=== PATIENT | male | born 1950 | race Caucasian/White ===

== ENCOUNTER → 2017-12-18 | Outpatient (CLI) | payer BC | END | disposition home or self-care (01) | LOC: PCVCIMAG 14:31 | DX: I25.10 Atherosclerotic heart disease of native coronary artery without angina pectoris (principal); I25.5 Ischemic cardiomyopathy; I10 Essential (primary) hypertension; E78.5 Hyperlipidemia, unspecified; I25.2 Old myocardial infarction; Z87.891 Personal history of nicotine dependence; Z79.82 Long term (current) use of aspirin; Z79.899 Other long term (current) drug therapy | CPT/HCPCS: 80061; 93005; 93306; G0463 ==

== ENCOUNTER → 2018-10-08 | Outpatient (CLI) | payer MEDICARE, OTHER ==
--- NOTE | 2018-10-08 18:36 | PCVCIMAG ---
APPROVED REPORT Study performed: 10/08/2018 11:31:05 Exam: Stress Echocardiogram Indication: CAD s/p SC, Hyperlipidemia, Hypertension Patient Location: Echo lab Stress Nurse: Caty Mcknight RN Status: routine Ht: 6 ft 3 in HR: 78 bpm BP: 100/60 mmHg Rhythm: NSR Medical History Medical History: CAD s/p SC, CAD s/p stent, Cardiomyopathy, Hyperlipidemia, HTN Procedure The patient underwent an Exercise Stress Test using the Dwayne Protocol. Blood pressure, heart rate, and EKG were monitored. An Echocardiogram was performed by artificial insemination technician in four stages in quad fashion. At peak stress, four selected images were obtained and placed side by side with resting images for comparison. Stress Test Details Stress Test: Exercise stress testing was performed using a Dwayne protocol. HR Resting HR: 78 bpmMax Heart Rate (APMHR): 154 bpm Max HR Achieved: 137 bpmTarget HR (85% APMHR): 130 bpm % of APMHR: 88 Recovery HR: 81 bpm HR response to stress: Normal HR response to stress BP Resting BP: 100/60 mmHg Max BP: 210/100 mmHg Recovery BP: 168/90 mmHg BP response to stress: Normal blood pressure response to stress. ECG Resting ECG: Sinus Rhythm Stress ECG: Sinus Rhythm Recovery ECG: Sinus Rhythm Clinical Reason for Termination: Maximal effort Stress Symptoms: Dyspnea Exercise duration: 5 min 20 sec Highest Stage Achieved: Stage 2: 2.5 mph at 12% grade. Exercise capacity: 7.20 METs Overall Exercise Capacity for Age: Poor Pre-Stress Echo The resting Echocardiogram showed abnormal left ventricular contractility with an estimated Ejection Fraction of about 45-50%. Distal septum, apical, basal inferior wall akinesis. Post-Stress Echo The stress Echocardiogram showed normal left ventricular contractility with an estimated Ejection Fraction of about 50-55%. Distal septum, apical, basal inferior wall akinesis remains. No new regional wall abnormalities. Conclusion Clinical Response: Non-ischemic Exercise Capacity: Below Average Stress ECG Response: Non-ischemic Stress Echo Images: Non-ischemic Other Information Study Quality: Technically Difficult
== END | disposition home or self-care (01) ==
LOC: PCVCIMAG 10:58
PROVIDERS: ATTEND Internal Medicine Cardiovascular Disease
DX: I25.119 Atherosclerotic heart disease of native coronary artery with unspecified angina pectoris (principal); I25.5 Ischemic cardiomyopathy; E78.00 Pure hypercholesterolemia, unspecified; I25.2 Old myocardial infarction; E78.5 Hyperlipidemia, unspecified; Z95.5 Presence of coronary angioplasty implant and graft
CPT/HCPCS: 93325; 93351

== ENCOUNTER → 2019-04-07 | Outpatient (CLI) | payer MEDICARE, OTHER | END | disposition home or self-care (01) | LOC: PCVCCLINIC 13:00 | PROVIDERS: ATTEND Internal Medicine Cardiovascular Disease | DX: I25.10 Atherosclerotic heart disease of native coronary artery without angina pectoris (principal); I42.9 Cardiomyopathy, unspecified; R94.31 Abnormal electrocardiogram [ECG] [EKG]; E78.00 Pure hypercholesterolemia, unspecified; Z95.5 Presence of coronary angioplasty implant and graft; Z87.891 Personal history of nicotine dependence; Z79.82 Long term (current) use of aspirin; Z79.899 Other long term (current) drug therapy | CPT/HCPCS: 36415; 80061; 93005; G0463 ==

== ENCOUNTER → 2019-09-30 | Outpatient (CLI) | payer MEDICARE, OTHER ==
--- NOTE | 2019-09-30 12:56 | PCVCIMAG ---
APPROVED REPORT Study performed: 09/30/2019 11:03:24 Exam: Stress Echocardiogram Indication: CAD s/p DC, CAD s/p stent, Cardiomyopathy, Hyperlipidemia, Hypertension Patient Location: Echo lab Stress Nurse: Sarah Márquez RN Room #: 1 Status: routine Ht: 6 ft 3 in HR: 72 bpm BP: 148/92 mmHg Rhythm: NSR Procedure The patient underwent an Exercise Stress Test using the Dwayne Protocol. Blood pressure, heart rate, and EKG were monitored. An Echocardiogram was performed by diet technician registered in four stages in quad fashion. At peak stress, four selected images were obtained and placed side by side with resting images for comparison. Stress Test Details Stress Test: Exercise stress testing was performed using a Dwayne protocol. HR Resting HR: 72 bpmMax Heart Rate (APMHR): 153 bpm Max HR Achieved: 150 bpmTarget HR (85% APMHR): 130 bpm % of APMHR: 98 Recovery HR: 92 bpm HR response to stress: Normal HR response to stress BP Resting BP: 148/92 mmHg Max BP: 170/102 mmHg Recovery BP: 168/88 mmHg BP response to stress: Normal blood pressure response to stress. ECG Resting ECG: Sinus Rhythm Stress ECG: Sinus Rhythm Recovery ECG: Sinus Rhythm Clinical Reason for Termination: Maximal effort, Dyspnea Exercise duration: 6 min 00 sec Highest Stage Achieved: Stage 2: 2.5 mph at 12% grade. Exercise capacity: 7.00 METs Overall Exercise Capacity for Age: Poor Stress ECG Conclusion Clinical: Non-ischemic ECG: Non-ischemic Pre-Stress Echo The resting Echocardiogram showed abnormal left ventricular contractility with an estimated Ejection Fraction of about 45-50%. Distal septum, apical, basal inferior wall akinesis. Post-Stress Echo The stress Echocardiogram showed abnormal left ventricular contractility with an estimated Ejection Fraction of about 50-55%. Distal septum, apical, basal inferior wall akinesis remains. No new wall motion abnormalities. Conclusion Clinical Response: Non-ischemic Exercise Capacity: Below Average Stress ECG Response: Non-ischemic Stress Echo Images: Non-ischemic Normal color doppler. No regurgitation or stenosis present on mitral, tricupsid, aortic, and pulmonic valves. Other Information Study Quality: Technically Difficult <Conclusion> Normal color doppler. No regurgitation or stenosis present on mitral, tricupsid, aortic, and pulmonic valves.
== END | disposition home or self-care (01) ==
LOC: PCVCIMAG 10:58
PROVIDERS: ATTEND Internal Medicine Cardiovascular Disease
DX: I25.119 Atherosclerotic heart disease of native coronary artery with unspecified angina pectoris (principal); I25.2 Old myocardial infarction; E78.00 Pure hypercholesterolemia, unspecified; I25.5 Ischemic cardiomyopathy; Z95.5 Presence of coronary angioplasty implant and graft; Z87.891 Personal history of nicotine dependence
CPT/HCPCS: 93325; 93351